=== PATIENT | female | born 1955 | race Asian ===

== ENCOUNTER → 2017-02-16 | Outpatient (CLI) | payer OTHER | LOC: BMCIMAGING 15:04 | DX: Z12.31 Encounter for screening mammogram for malignant neoplasm of breast (principal) | CPT/HCPCS: G0202 ==

== ENCOUNTER → 2018-10-13 | Outpatient (CLI) | payer OTHER | LOC: BMCIMAGING 13:33 | PROVIDERS: ATTEND Internal Medicine | DX: Z12.31 Encounter for screening mammogram for malignant neoplasm of breast (principal) ==

== ENCOUNTER → 2018-11-28 | Outpatient (CLI) | payer OTHER | LOC: BMCIMAGING 13:52 | PROVIDERS: ATTEND Internal Medicine Rheumatology | DX: M05.79 Rheumatoid arthritis with rheumatoid factor of multiple sites without organ or systems involvement (principal) ==